=== PATIENT | female | born 1980 | race American Indian/Alaskan Native ===

== ENCOUNTER 2018-09-24 10:52 | Outpatient (CLI) | payer BC, MEDICARE ==
[2018-09-24] MEDS ORDERED: XYLOCAINE TOPICAL 4% TP ONE (11:55)
== END 2018-09-24 10:53 | disposition home or self-care (01) ==
LOC: WOUND 10:52
PROVIDERS: ATTEND Surgery
DX: I87.311 Chronic venous hypertension (idiopathic) with ulcer of right lower extremity (principal); L97.312 Non-pressure chronic ulcer of right ankle with fat layer exposed; J45.909 Unspecified asthma, uncomplicated; J42 Unspecified chronic bronchitis; F41.9 Anxiety disorder, unspecified; F32.9 Major depressive disorder, single episode, unspecified; F17.210 Nicotine dependence, cigarettes, uncomplicated
CPT/HCPCS: 11042; 11045; G0463; 99205